=== PATIENT | female | born 1980 | race Asian ===

== ENCOUNTER 2018-07-10 17:08 | Outpatient (CLI) | payer MEDICAID | END 2018-07-10 17:09 | disposition critical access hospital (66) | LOC: EMS 17:08 | PROVIDERS: ATTEND Surgery | DX: R00.0 Tachycardia, unspecified (principal); R06.02 Shortness of breath; R25.8 Other abnormal involuntary movements; R25.2 Cramp and spasm; M25.569 Pain in unspecified knee | CPT/HCPCS: A0425; A0429 ==

== ENCOUNTER 2018-07-10 17:38 | Emergency (ER) | payer MEDICAID ==
[2018-07-10] MEDS ORDERED: LORazepam 2 MG/ML VIAL IVP STA (17:42)
[2018-07-10] MEDS ORDERED: SODIUM CHLORIDE 0.9% 1,000 ML IV ONE (17:42)
--- NOTE | 2018-07-10 17:44 | ED Physician Documentation ---
History of Present Illness - Stated complaint Stated Complaint: SHAKING - History obtained from History obtained from: Patient, EMS - History of Present Illness Timing: Today (Had a marijuana cookie a couple hours ago. It was the first time ever using marijuana. She has had a range of labile attitudes and feelings and is shaking a lot. She denies pain or headache.) Review of Systems Constitutional: denies: Fever, Chills, Fatigue Nose: denies: Rhinorrhea / runny nose, Congestion Throat: denies: Sore throat PD PAST MEDICAL HISTORY - Present Medications Home Medications: Ambulatory Orders Medication Instructions Recorded Confirmed No Known Home Medications 07/10/18 07/10/18 - Allergies Allergies/Adverse Reactions: Allergies Allergy/AdvReac Type Severity Reaction Status Date / Time No Known Drug Allergies Allergy Verified 07/10/18 17:45 PD ED PE NORMAL - Vitals Vital signs reviewed: Yes - General General: Alert and oriented X 3, Other (Sometimes sobbing and sometimes laughing, she is flapping her arms like a bird.) - HEENT HEENT: PERRL, EOMI - Neck Neck: Supple, no meningeal sign, No bony TTP - Cardiac Cardiac: RRR, No murmur - Respiratory Respiratory: No respiratory distress, Clear bilaterally - Abdomen Abdomen: Non tender - Extremities Extremities: No deformity, No tenderness to palpate - Neuro Neuro: Alert and oriented X 3 Eye Opening: Spontaneous Motor: Obeys Commands Verbal: Oriented GCS Score: 15 Results - Vitals Vitals: Vital Signs - 24 hr 07/10/18 07/10/18 17:41 19:21 Temperature 36.9 C Heart Rate 82 63 Respiratory 17 14 Rate Blood Pressure 123/62 96/51 L O2 Saturation 100 100 Oxygen O2 Source Room air - Labs Labs: Laboratory Tests 07/10/18 18:58 Sodium 135 Potassium 3.2 L Chloride 101 Carbon Dioxide 24 Anion Gap 10.0 BUN 11 Creatinine 0.6 Estimated GFR (MDRD) 111 Glucose 111 H Calcium 8.1 L Total Creatine Kinase 116 PD MEDICAL DECISION MAKING - ED course ED course: This is a 38-year-old woman with some atypical symptoms after using an excessive amount of marijuana. With time and a little bit of Ativan she came around to normal and had no other specific complaints. Potassium was mildly low and repleted orally. Departure - Departure Disposition: 01 Home, Self Care Clinical Impression: Marijuana intoxication Qualifiers: Complication of substance-induced condition: with perceptual disturbance Qualified Code(s): F12.922 - Cannabis use, unspecified with intoxication with perceptual disturbance Condition: Good Record reviewed to determine appropriate education?: Yes Instructions: ED Marijuana Abuse Comments: Call your doctor to arrange a follow-up appointment, make the next available appointment. In the interim, return anytime if worse or if new symptoms develop.
[2018-07-10 19:16] LABS: CALCIUM 8.1 mg/dL (8.5-10.3); CREATININE 0.6 mg/dL (0.4-1.0)
[2018-07-10 19:22] VITALS: BP 96/51
[2018-07-10] MEDS ORDERED: POTASSIUM CHLORIDE 20 MEQ TABLET PO STA (19:27)
== END 2018-07-10 19:51 | disposition home or self-care (01) ==
LOC: ED 17:38
DX: F12.922 Cannabis use, unspecified with intoxication with perceptual disturbance (principal); E87.6 Hypokalemia
CPT/HCPCS: 36415; 80048; 82550; 96361; 96374; 99283; A9270; J2060